=== PATIENT | female | born 1990 | race Caucasian/White ===

== ENCOUNTER 2020-02-11 01:03 | Emergency (ER) | payer MEDICAID, SELFPAY ==
[2020-02-11 01:16] VITALS: BP 110/74; PULSE 95; RESP 18; TEMP 36.9; O2SAT 97; BMI 21.6
--- NOTE | 2020-02-11 01:24 | ED_ITS ---
HPI - Dental/Oral General: Chief complaint: Dental/Oral Stated complaint: dental abscess Time Seen by Provider: 02/11/20 01:24 Source: patient Mode of arrival: ambulatory Limitations: no limitations History of Present Illness: HPI Narrative: Patient presents with some right upper dental incisor swelling and pain. Patient states for last 2 days she has had increasing discomfort and swelling to the face. Patient does have poor dentition. Patient appears well. Patient appears in moderate pain. Review of Systems General: Reports: 10 or more systems reviewed and unremarkable except in HPI and below ENMT: Reports: mouth pain [facility] ED Female Reproductive History: Date of last menstrual period: 11/08/19 Physical Exam Const: COMMON NORMALS: no acute distress and patient oriented x3 GENERAL APPEARANCE: cooperative HENMT: COMMON NORMALS: Normal external nose present HEAD & SCALP: other (Mild facial swelling to the right upper lip area.) NOSE: Normal external nose present MOUTH: other (Poor dentition, multiple caries with decay to the gumline. Patient has erythema to the second right incisor gumline.) THROAT: posterior oropharynx normal Eye: GENERAL EYE: appearance normal, both eyes and all related structures Neck/C-Spine: COMMON NORMALS: full ROM Lymph: LYMPHATIC: no lymphadenopathy noted Chest: COMMONS NORMALS: normal inspection of the chest Resp: COMMON NORMALS: normal respiratory effort EFFORT & INSPECTION: Yes able to speak in complete sentences Cardio: COMMON NORMALS: regular rate and regular rhythm RATE: regular rate RHYTHM: regular rhythm GI: COMMON NORMALS: non-tender Back/Pelvis: COMMON NORMALS: thoracic and lumbar spine normal to inspection Extremity: COMMON NORMALS: normal to inspection Neuro: COMMON NORMALS: patient oriented x3 and moves all extremities Psych: COMMON NORMALS: mental status grossly normal and cooperative Skin: COMMON NORMALS: no rashes or lesions noted GENERAL SKIN EXAM: no rashes or lesions noted Course Vital Signs: Vital signs: Vital Signs Temperature 98.5 F 02/11/20 01:16 Pulse Rate 95 02/11/20 01:16 Respiratory Rate 18 02/11/20 01:16 Blood Pressure 110/74 02/11/20 01:16 Pulse Oximetry 97 02/11/20 01:16 MDM - Dental/Oral MDM Narrative: Medical decision making narrative: Patient comes in for dental pain. On exam patient has a dental abscess to the right upper frontal incisor. Note that patient has very poor dentition with multiple caries and dental decay. Differential diagnosis includes but not limited to dental caries, dental abscess, cellulitis. Reviewed exam with patient recommended treatment for dental abscess. Patient was given clindamycin 300 every 8 hours for 7 days. Patient was given some ibuprofen and hydrocodone with acetaminophen for pain. Patient reports understanding of care plan and need for follow-up for definitive care with dentist. Discharge Plan Discharge Patient Disposition: Home, Self-Care Clinical Impression: Dental abscess Condition: Stable Prescriptions: New clindamycin HCl 150 mg capsule 300 mg PO Q8H 7 Days Qty: 42 RF: 0 hydrocodone-acetaminophen 5-325 mg tablet 1 tab PO Q8H PRN (Reason: pain) Qty: 6 RF: 0 ibuprofen 600 mg tablet 600 mg PO Q6H PRN (Reason: pain) Qty: 30 RF: 0 Discharge Orders: Discharge Order (Routine); Ordered 02/11/20 Ordered By: Jesus Ochoa Referrals: Marilin Villalba FNP [Primary Care Provider] - Discharge Diet: Usual diet Discharge Activity: Increase activity as tolerated Patient Instructions: Dental Abscess (ED) Activity Restrictions/Additional Instructions: Take antibiotics as directed. Use acetaminophen and ibuprofen to control pain. Use hydrocodone for breakthrough pain. Use ice or heat for further pain control. Drink plenty of water with medications. Follow-up with dentist for definitive care. Return to the ED for new concerns. Coding Level of Care Code ED Contract Accountant for Maria L Connelly Exam Comprehensive
[2020-02-11] MEDS: clindamycin 150 mg Capsule 300 MG PO (01:52)
[2020-02-11] MEDS: HYDROcodone-acetaminophen 7.5-325 mg Tablet 1 TAB PO (01:52)
== END 2020-02-11 01:58 | disposition home or self-care (01) ==
PROVIDERS: Emergency Provider Nurse Practitioner Family; PCP Nurse Practitioner Family
DX: K04.7 Periapical abscess without sinus (principal)
CPT/HCPCS: 12345; 99281; 99283

== ENCOUNTER 2020-02-11 13:42 | Emergency (ER) | payer MEDICAID, SELFPAY ==
[2020-02-11 13:52] VITALS: BP 121/79; PULSE 116; RESP 15; TEMP 38.1; O2SAT 97; BMI 21.6
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
--- NOTE | 2020-02-11 14:11 | CTR_ITS ---
PROCEDURE INFORMATION: Exam: CT Maxillofacial With Contrast Exam date and time: 02/11/2020 2:12 PM Age: 29 years old Clinical indication: Face pain; Patient HX: Broken tooth; Additional info: Lip/mouth swelling TECHNIQUE: Imaging protocol: Computed tomography images of the face with intravenous contrast. Radiation optimization: All CT scans at this facility use at least one of these dose optimization techniques: automated exposure control; mA and/or kV adjustment per patient size (includes targeted exams where dose is matched to clinical indication); or iterative reconstruction. Contrast material: OMNIQUE 300; Contrast volume: 75 ml; Contrast route: INTRAVENOUS (IV); COMPARISON: No relevant prior studies available. RADIATION DOSE METRICS: Total DLP (mGy-cm): 795.2 FINDINGS: Orbits: Orbits are normal. Globes are unremarkable. Bones/joints: The mandible is intact. No osteomyelitis of the mandible. There is a fractured tooth just right of midline in the right maxilla. This is less prominent than the destruction in the left maxilla. No additional abscess is identified. The pterygoids are intact. The zygoma are intact. There are nondisplaced fractures of the nasal bones. The orbital gannon are intact. Sinuses: Gannon of the bilateral maxillary sinuses are intact. There is mild mucosal thickening in the sinuses. No air-fluid level. Brain: The outer cortex of the maxilla is destroyed compatible with osteomyelitis. Dental: There is a small amount of periapical lucency surrounding the teeth in the right mandible just right of midline. There is marked periapical lucency surrounding the tooth just left of midline in the maxilla series 602, image 29. This tooth has marked periapical lucency concerning for underlying infection. There is however a peripherally enhancing fluid collection overlying this tooth concerning for subperiosteal abscess that measures 4 x 9 by 1.4 cm in size. Lymph nodes: Bilateral enlarged lymph nodes are noted in the visualized upper neck. Soft tissues: There is abundant soft tissue edema superficial to this tooth and there is some destruction of the outer cortex of the right maxilla. There is soft tissue edema overlying the face especially overlying the maxilla and right infraorbital region. CT/CT facial bones w con [id number] IMPRESSION: 1. Bilateral nondisplaced nasal bone fractures. No additional acute facial fracture. 2. There is a fractured tooth in the right maxilla. This tooth has marked periapical lucency with small area of destruction of the outer cortex of the maxilla. There is a peripherally enhancing fluid collection compatible with a subperiosteal abscess overlying this portion of the maxilla. 3. Additional area of more prominent/larger bony destruction in the left maxilla surrounding 1 tooth just left of midline with extensive periapical lucency and cortical destruction of the maxilla compatible with osteomyelitis in greater bony destruction. 4. There is soft tissue edema overlying the nose adjacent to the fractures and there is also abundant edema and enhancement of the soft tissues of the right face compatible probable underlying or pre-existing cellulitis adjacent to the teeth abnormalities and osteomyelitis described above. Radiation Dose CTDIVOL = (mGy): DLP = 795.2 (mGy-cm)
[2020-02-11] MEDS: ketorolac 30 mg/mL INJ IVP (14:25)
[2020-02-11 14:26] LABS: Basophils # 0.1 10^3/uL (0.0-0.1); Basophils % 0.6 %; Eosinophils % 0.3 %; Hematocrit 43.5 % (37.0-47.0); Hemoglobin 14.1 g/dL (11.5-15.3); Lymphocytes % 11.3 %; Mean Corpuscular HGB Conc 32.4 g/dL (30.0-36.0); Mean Corpuscular Hemoglobin 29.4 pg (28.0-34.0); Mean Corpuscular Volume 90.6 fL (81-99); Mean Platelet Volume 11.2 fL (7.4-10.4); Monocytes # 0.4 10^3/uL (0.2-0.9); Monocytes % 4.7 %; Neutrophils # 7.21 10^3/uL (1.8-7.7); Neutrophils % 82.9 %; Nucleated Red Blood Cells % 0 %; Platelet Count 201 10^3/cmm (130-400); Red Cell Distribution Width 13.1 % (12.1-15.1); White Blood Count 8.7 10^3/uL (4.0-10.0)
[2020-02-11] MEDS: sodium chloride 0.9% 500 ML 999 ML IV (14:26)
[2020-02-11 14:30] VITALS: BP 124/72; PULSE 108; RESP 20; O2SAT 98
[2020-02-11 14:43] LABS: Alanine Aminotransferase 8 U/L (0-33); Albumin Level 4.8 g/dL (3.5-5.2); Alkaline Phosphatase 64 IU/L (35-105); Anion Gap 16.6 (5-19); Aspartate Amino Transferase 12 U/L (0-32); Blood Urea Nitrogen 6 mg/dL (6-20); Calcium 9.3 mg/dL (8.5-10.5); Carbon Dioxide 25 mmol/L (22-29); Chloride 94 mmol/L (98-107); Globulin 3.1 g/dL (1.3-4.6); Glomerular Filtration Rate 116.6 mL/min (90-130); Glucose 117 mg/dL (65-115); Osmolality Calculated 271 mOsm/kg (285-295); Potassium 3.6 mmol/L (3.5-5.1); Sodium 132 mmol/L (136-145); Total Bilirubin 0.6 mg/dL (0.15-1.2); Total Protein 7.9 g/dL (6.6-8.7)
[2020-02-11 14:44] LABS: Lactate (Lactic Acid level) 1.4 mmol/L (0.5-2.2)
[2020-02-11] MEDS: iohexol 300 mg/mL 100 mL Btl IV (14:51)
[2020-02-11 16:00] VITALS: BP 112/90; PULSE 99; RESP 18; O2SAT 94
[2020-02-11] MEDS: vancomycin 1,000 MG in sodium chloride 0.9% 250 ML 250 MG IV (16:02)
[2020-02-11 16:17] LABS: Add Urine Microscopic? NO
[2020-02-11 16:24] LABS: Urine Appearance Clear (CLEAR); Urine Color Straw (Yellow)
--- NOTE | 2020-02-11 16:24 | PC.NURSE ---
while at bedside pt is in nad. pt denies sob, hives, throat swelling or any other signs of allergic reaction. pt request to speak with provider pool. informed provider pool of pt wanting to speak with her she verbalized understanding and stated that she would be there ethan.
[2020-02-11 16:25] LABS: Bilirubin Urine Neg (NEGATIVE); Blood Urine Neg (Negative); Glucose Urine UA Norm (Normal); Ketones Urine Negative (Negative); Leukocyte Esterase Urine Negative (Negative); Nitrate Urine Negative (Negative); Protein Urine Neg (Negative); Urobilinogen Urine Norm (Negative); pH Urine 7 (5-7)
[2020-02-11 16:28] VITALS: TEMP 36.8
[2020-02-11 17:15] VITALS: BP 100/74; PULSE 98; RESP 20; O2SAT 98
== END 2020-02-11 17:16 | disposition home or self-care (01) ==
PROVIDERS: Emergency Provider Nurse Practitioner Family; PCP Nurse Practitioner Family
DX: K04.7 Periapical abscess without sinus (principal); K02.9 Dental caries, unspecified; S02.5XXA Fracture of tooth (traumatic), initial encounter for closed fracture; F17.210 Nicotine dependence, cigarettes, uncomplicated; X58.XXXA Exposure to other specified factors, initial encounter
CPT/HCPCS: 12345; 36415; 70487; 80053; 81003; 81025; 83605; 85025; 87040; 96365; 96375; 99283; 99284; J1885; J3370; J7040; J7050; Q9967